=== PATIENT | female | born 1960 | race Caucasian/White ===

== ENCOUNTER 2024-06-18 15:50 | Inpatient (IN) | payer MEDICARE, SELFPAY ==
[2024-06-18] VITALS (10 sets, daily range): BP systolic 99–136; BP diastolic 40–97; BMI 24.9
--- NOTE | 2024-06-18 13:49 | ED TECH ---
A STEMI ALERT was called#[id number]# per @13.47pm.
--- NOTE | 2024-06-18 14:01 | ED.GENMED ---
History of Present Illness
General
Chief Complaint: Abdominal Pain
Source: patient
Exam Limitations: none
Time Seen by Provider: 06/18/24 14:01
History of Present Illness
History of Present Illness:
See MDM
Past History
Past History
ED Past Medical History: Hypothyroidism
ED Past Surgical History: Other (Breast lupectomy)
Social History
Tobacco: Non-smoker
Alcohol: None
Phy Exam
Physical Exam
Physical Exam:
See MDM
Course
Orders/Labs/Results
Orders:
Orders
06/18/24 13:41
Electrocardiogram (*1) Urgent
Reason for Study: Abdominal Pain
EKG- Treatment ONCE
06/18/24 13:55
Complete Blood Count/With Diff Urgent
Comprehensive Metabolic Panel Urgent
PTT Urgent
Prothrombin Time Urgent
Troponin I Urgent
Vital Signs
Initial and Last Documented VS:
Initial Vital Signs
Temp Pulse Resp BP
98.3 F 109 20 136/97
06/18/24 13:55 06/18/24 13:55 06/18/24 13:55 06/18/24 13:55
Last Documented Vital Signs
Temp Pulse Resp BP
98.3 F 109 20 136/97
06/18/24 13:55 06/18/24 13:55 06/18/24 13:55 06/18/24 13:55
MDM/Problems Addressed
Differential Diagnosis Includes:
HPI and MDM Narrative:
64-year-old female presenting to the emergency department with chest discomfort and neck pain. This occurred a few hours prior to arrival while she was eating breakfast. EKG done immediately on arrival and it read STEMI. Patient rushed back to
the emergency department immediately and STEMI alert was called. Patient immediately given aspirin load, Brilinta load, heparin bolus and sublingual nitro x 2. With sublingual nitro, patient states she is feeling better. She is extremely anxious
but expected.
She denies prior cardiac history or prior smoking history. She states she was having palpitations over the past few months and recently had negative cardiac evaluation a few months ago
Once the EKG was read by myself, immediately scented to the tape stringer on-call who immediately called his cath team in
Physical exam
General: Sitting in bed comfortably but anxious
HEENT: protecting airway
Neck: appears supple
CV: No evidence of cyanosis. Tachycardic
Resp: No accessory muscle use
Abd: Non-distended
Extremities: No deformities
Neuro: alert
Psych: Anxious
Skin: Intact
Problems Addressed including Acute and Chronic Conditions affecting care:
1. STEMI
Acuity: acute
Prognosis: unstable
Details: EKG done in triage showed STEMI. STEMI alert immediately called. Patient loaded with aspirin, Brilinta and heparin. Nitroglycerin is helping with the pain. The electrical technician instructor made aware immediately and will take her upstairs to
Employee Relation Manager
Updates
Differential Diagnosis (but not limited to): NSTEMI, STEMI
Testing considered: D-dimer
Drug therapy (if applicable): OTC meds, please see d/c instruction regarding Rx drugs
Amount and/or Complexity of Data Reviewed
Clinical info obtained from: Patient
External data reviewed: N/A
Labs I independently reviewed (but not limited to): N/A
Radiology: N/A
Pulse Ox: not hypoxic
EKG independently reviewed: Sinus rhythm, ST elevation anteriorly, reciprocal changes inferiorly, STEMI
Document Management Consultant: Sinus tachycardia
Critical Care: The high probability of a clinically significant, sudden or life threatening deterioration of the cardiovascular system(s) required my full and direct attention, intervention and personal management. The aggregate critical care time
was 31 minutes. This time is in addition to time spent performing reported procedures but includes the following:
[x] Data Review and interpretation
[x] Patient assessment and monitoring of vital signs
[x] Documentation
[x] Medication orders and management
Risk of Complication:
Social Determinants of health: Good social support
Discussed with other providers: Commission Associate
Escalation of Care includes Admit/Obs: Given her concern for acute STEMI, patient sent directly to Employee Relation Manager
Occasional wrong word or 'sound a like' substitutions may have occurred due to the inherent limitations of voice recognition software. Read the chart carefully and recognize, using context, where substitutions have occurred.
*Critical Care Note
Total Time (30-74mins, 75-104mins- exclusive of procedures): 31 min
ED Attending Note
-
Portions of this chart may have been created with voice recognition software.� Occasional wrong word or��sound alike� substitutions may have occurred due to the inherent limitations of voice recognition software.
Discharge Plan
Departure
Patient Disposition: Admit
Date of Disposition: 06/18/24
Time of Disposition: 14:01
Admit to: microbiology laboratory manager
Presentation/result/management discussed w/ accepting MD/DO: Commission Associate
Discharge Problem:
ST elevation (STEMI) myocardial infarction
Discharge Date and Time
Print Language: INDONESIAN
--- NOTE | 2024-06-18 14:18 | CON.CAR ---
Consultation
Consultation Request
Date/Time Consultation Requested: 06/18/2023 2 PM
Date/Time Consultation Performed: 06/18/2023 2 PM
Requesting Provider: Musa High
Performing Provider: Shane Puente
Reason for Consultation: anterior STEMI
Medical History
-
Chief Complaint: chest pain
History of Present Illness:
64-year-old female with medical history of breast cancer (2013), hypothyroidism, hyperlipidemia, presenting to the emergency department with chest pain. She an episode of chest pain radiating to arms/back/neck two weeks ago and again several days
ago that prompted her to discuss with her primary care doctor. She was instructed to present to the ED if this occurred again. She had recurrent more severe symptoms this morning while eating breakfast. Came to ED. EKG done immediately on
arrival showing anterior STEMI. Stable vital signs. Patient immediately given aspirin load, Brilinta load, heparin bolus and sublingual nitro x 2. With sublingual nitro, symptoms improved. general labor emergently activated. Coronary angiography
demonstrated 100% thrombotic occluded proximal/ostial LAD. PCI performed with mechanical thrombectomy followed by DESx2 with excellent result. Patient admitted to IVU in stable condition.
Denies smoking history. She was seen by cardiology (Dr. Jonas, [facility]) 04/2024 at which time she was having rare episodes of brief atypical chest pain and palpitations. Stress testing was offered but the patient elected to hold off. She reports
she had a distant stress test (~15 years ago) that was normal, and also a more recent Holter and Echo that were unremarkable.
Past Medical History
Past Medical History: Cancer, Hypercholesterolemia and Hypothyroidism
Social History
Tobacco: Non-Smoker
Allergies / Home Medications
Allergy/AdvReac Type Severity Reaction Status Date / Time
Penicillins Allergy Unknown Unknown Verified 06/18/24 13:55
Review of Systems
-
Cardiac: Chest Pain
Physical Exam
Vital Signs
Temp Pulse Resp BP
36.8 C 109 20 136/97
06/18/24 13:55 06/18/24 13:55 06/18/24 13:55 06/18/24 13:55
Physical Exam
General: Well Developed
HEENT: Normocephalic
Respiratory: Clear
Cardiac: S1/S2 and Regular Rhythm
Skin: Warm
Neuro: AO x 3
Impression / Plan
-
This is a 64 year old woman who has been having worsening anginal episodes at rest over the past several weeks to months, prompting her to present this morning and found to have an anterior STEMI with emergent coronary angiography demonstrating 100%
thrombotic occlusion of the proximal LAD. She is status post PCI with mechanical thrombectomy and ROBERT x 2 with excellent result. She had a elevated LVEDP ~25 mmHg in the chemical laboratory chief, but no clinical signs of heart failure, and remained hemodynamically
stable throughout the procedure.
Recommendations:
DAPT with aspirin and ticagrelor for at least 1 year
High intensity statin for goal LDL less than 55
Titrate beta-iglesia for goal heart rate 60
Start low-dose valsartan tomorrow if SBP greater than 100
Diuresis if signs of clinical volume overload (EDP was 25 in the Fraternity Adviser)
Echo tomorrow, further GDMT pending echo
Trend troponin to peak
Check lipids, Lp(a), A1c
Cardiac rehab
Data Reviewed
-
EKG: Tracing Personally Visualized and interpreted, Report Reviewed by me and Discussed with Physician
Labs: Labs Reviewed by me, Discussed with Physician and Discussed with Nurse
Old Records: Reviewed
[2024-06-18 14:52] LABS: ACT-LR - POC 271 Seconds (116-155)
[2024-06-18 15:15] LABS: ACT-LR - POC 377 Seconds (116-155)
[2024-06-18 15:22] LABS: % Basophils 0.6 % (0-2); % Eosinophils 0.8 % (0-6); % Immature Granulocytes 0.3 % (0-0.5); % Lymphocytes 8.1 % (20.5-51.1); % Monocytes 7.4 % (1.7-9.3); % Neutrophils 82.8 % (42.2-75.2); Absolute Basophils 0.1 10^3/uL (0-0.2); Absolute Eosinophils 0.1 10^3/uL (0-0.7); Absolute Monocytes 0.9 10^3/uL (0.1-0.6); Absolute Neutrophils 9.8 10^3/uL (1.4-6.5); Hematocrit 45.6 % (37.0-47.0); Hemoglobin 15.4 g/dL (12.0-16.0); Mean Corp Hgb Conc. 33.8 g/dL (33.0-37.0); Mean Corpuscular Hgb 30.4 pg (27.0-31.0); Mean Corpuscular Volume 89.9 fL (81.0-99.0); Mean Platelet Volume 10.1 fL (7.4-10.4); Nucleated Red Blood Cells % 0 %; Platelet Count 446 10^3/uL (130-400); Red Blood Cell Count 5.07 10^6/uL (4.20-5.40); Red Cell Dist. Width 13.8 % (11.5-14.5); White Blood Cell Count 11.9 10^3/uL (4.8-10.8)
[2024-06-18 15:27] LABS: ACT-LR - POC 310 Seconds (116-155)
[2024-06-18 15:32] LABS: APTT 29.6 Sec (23.4-35.0); INR 0.98; PT 13.3 Sec (11.4-14.6)
[2024-06-18 15:46] LABS: ALT (SGPT) 28 U/L (0-35); AST (SGOT) 111 U/L (14-36); Albumin 3.2 g/dl (3.5-5.0); Alkaline Phosphatase 106 U/L (38-126); Blood Urea Nitrogen 16 mg/dl (7-17); Calcium 8.3 mg/dl (8.4-10.2); Carbon Dioxide 21 mmol/L (22-30); Chloride 102 mmol/L (98-107); Estimated Creatinine Clearance 84 ml/min; Glucose 103 mg/dl (70-99); Potassium 3.4 mmol/L (3.5-5.1); Sodium 133 mmol/L (135-145); Total Bilirubin 0.7 mg/dl (0.2-1.3); Total Protein 5.8 g/dl (6.3-8.2); eGFR > 60.00
[2024-06-18 15:56] LABS: Troponin I 0.831 ng/ml
--- NOTE | 2024-06-18 16:26 | ITS.CL.PN ---
Paddle Dyeing Machine Operator - Procedure Note
Procedure
Procedure Note:
CARDIAC CATHETERIZATION REPORT
Date of Procedure: 06/18/2024
Referring: Dr. Musa High DO
Indication: anterior STEMI
PROCEDURE(S)
1. left heart catheterization
2. coronary angiography
3. mechanical thrombectomy
4. PCI with ROBERT for acute ND
5. IVUS
ACCESS: 6F right radial artery (closure: radial band)
CATHETERS
1. 6F JR4
2. 6F JL3.5
3. 6F EBU 3.5 guide catheter
MODERATE SEDATION: 90 minutes of moderate sedation was utilized. An independent medical cost consultant was present to assist with and help manage the patient's level of consciousness and physiologic status.
ULTRASOUND GUIDED VASCULAR ACCESS (right radial artery): Ultrasound was utilized for vascular access. The vessel was visualized under ultrasound and noted to be patent. An image of the vessel was stored permanently in the patient's medical record.
Under direct ultrasound guidance, vascular access was obtained using a modified Seldinger technique and a 6 Icelandic sheath was placed.
HEMODYNAMIC DATA
LV 109/18 (EDP 25) mmHg
AO 98/66 (mean 79) mmHg
CORONARY ANGIOGRAPHY
Dominance: Right
LM: Large, normal
LAD: large vessel giving rise to two moderate caliber diagonal branches. There is a 100% thrombotic occlusion proximally with TIMI0 flow and no collateralization. There is a area of bridging in the distal vessel.
LCx: large vessel giving rise to a small OM1, large branching OM2, small OM3, and large branching LPL. There is no coronary artery disease.
RCA: large vessel giving rise to a moderate caliber RPDA and small RPL branch. There is no coronary artery disease.
PCI to ostial/proximal LAD for acute ND with Penumbra mechanical thrombectomy, DESx2, and IVUS-guidance
Additional heparin was administered to achieve ACT greater than 300. The left main was engaged with an EBU 3.5 guide catheter and a Runthrough coronary wire placed in the distal LAD. Initial lesion preparation was performed with a 2.0 x 12
semicompliant balloon serial inflated with some faith of distal flow but significant thrombus visualized in the proximal LAD. The decision was made to perform mechanical thrombectomy with the [facility] CAT Rx system. After priming, the Cat Rx
catheter was advanced over the wire until within the left main, aspiration was switched on, and the catheter was advanced slowly to the mid LAD and then slowly back all the way to the guide with continuous aspiration. The catheter was removed from
the body after which aspiration was turned off and the guide was copiously aspirated. Subsequent angiography demonstrated significantly improved thrombus burden and dramatically improved distal flow. Stenting was performed with a 3.5 x 22 mm Helio
frontier drug-eluting stent inflated to 12 brendon. Subsequent angiography demonstrated significant stenosis proximal to the proximal stent edge in the ostial LAD versus possible stent edge mediated spasm. 200 mcg of IC nitroglycerin was given without
improvement in the appearance of the ostial LAD. IVUS was performed and demonstrated the stent to be undersized with a 4.0-4.25 millimeter distal and proximal vessel reference diameter. It also demonstrated significant soft plaque in the uncovered
ostial LAD. Decision was made to place a second overlapping 3.5 x 8 mm [place] ROBERT to cover the ostial LAD, which was deployed at 16 brendon after confirming precise ostial location and stent overlap in several views. Post dilation was then
performed with a 4.0 x 15 mm noncompliant balloon taken to 16 brendon at the distal stent edge and 18 brendon in the remainder of the overlapping stents. Final IVUS demonstrated excellent stent sizing, expansion, and apposition and no stent edge
dissections. Final angiographic result was outstanding with TIMI3 flow in the jailed D1. There was noted to be an area of cutoff in the very apical LAD, likely due to embolized thrombus. As this is a ~1 mm vessel subtending a very small area of
myocardium, decision was made to manage this medically. The wire and guide were removed and a TR band placed. The patient was taken to the IVU in stable condition and family updated.
RADIATION: dose 1082 mGy; DAP 77.8 Gy*cm2; fluoroscopy time 12.6 min
CONCLUSIONS
1. Single-vessel coronary artery disease as described with 100% thrombotic occlusion of the proximal LAD in setting of anterior STEMI.
2. Elevated left ventricular filling pressure and no aortic stenosis on hemodynamic pullback.
3. Successful PCI of the ostial/proximal LAD with mechanical thrombectomy followed by stenting with overlapping 3.5 x 22 mm and 3.5 x 8 mm Helio frontier drug-eluting stents postdilated to high-pressure with a 4.0 mm NC balloon. IVUS guided and
optimized with outstanding result and no complications.
RECOMMENDATIONS
1. expectant management after cardiac catheterization via right radial approach
2. DAPT with aspirin and ticagrelor for at least 1 year
3. aggressive secondary prevention of coronary artery disease with high intensity statin for goal LDL less than 55
Copy to: Dr. Qasim Jonas MD (crystallizer operator); NICKIE Guidry (PCP)
Signed: Shane Puente MD, PhD
[2024-06-18] MEDS: CRESTOR 20 MG PO (18:14)
[2024-06-18] MEDS: LOVENOX 40 MG SC (18:14)
[2024-06-18] MEDS: BRILINTA 90 MG PO (19:53)
[2024-06-18] MEDS: LOPRESSOR 12.5 MG PO (19:53)
--- NOTE | 2024-06-18 21:39 | PTCARENOTE ---
Received patient at change of shift. Patient sitting in bed, A&Ox3, family bedside. Right radial site clean, dry and intact with R-band still in place. No swelling, ecchymosis, or hematoma present at this time. BP 111/64, NSR 80s, 97% on room air.
Patient verbalizes being very anxious. RN spent time discussing plan of care and answering some questions the patient had. Patient agrees to call RN with any chest pain. Call maldonado within reach.
[2024-06-18] MEDS: AROMASIN 25 MG PO (22:25)
[2024-06-18] MEDS: SEROQUEL 12.5 MG PO (22:26)
[2024-06-19] VITALS (8 sets, daily range): BP systolic 87–120; BP diastolic 56–73; BMI 24.7
--- NOTE | 2024-06-19 01:05 | PTCARENOTE ---
Addendum entered by Maddy Kebede RN 06/19/24 01:07:
Order placed
Original Note:
While ambulating in [place], pt verbalized wanting to speak with Assistant Manager Trainee tomorrow if possible.
[2024-06-19 05:05] LABS: Hematocrit 39.3 % (37.0-47.0); Hemoglobin 13.6 g/dL (12.0-16.0); Mean Corp Hgb Conc. 34.6 g/dL (33.0-37.0); Mean Corpuscular Hgb 31.3 pg (27.0-31.0); Mean Corpuscular Volume 90.3 fL (81.0-99.0); Mean Platelet Volume 10.5 fL (7.4-10.4); Platelet Count 383 10^3/uL (130-400); Red Blood Cell Count 4.35 10^6/uL (4.20-5.40); Red Cell Dist. Width 13.6 % (11.5-14.5); White Blood Cell Count 12.1 10^3/uL (4.8-10.8)
[2024-06-19 05:32] LABS: Blood Urea Nitrogen 20 mg/dl (7-17); Carbon Dioxide 23 mmol/L (22-30); Chloride 104 mmol/L (98-107); Estimated Creatinine Clearance 84 ml/min; Glucose 93 mg/dl (70-99); HDL Cholesterol 50 mg/dl; LDL Cholesterol, Calculated 163 mg/dl; Sodium 137 mmol/L (135-145); Total Cholesterol 233 mg/dl (50-199); Triglyceride 104 mg/dl (10-149); Very Low Density Lipoprotein 20 mg/dl (0-30); eGFR > 60.00
--- NOTE | 2024-06-19 07:43 | W.PN.UPDATE ---
Update Note
Progress Note Update
Called to bedside for abnormal ECG.
The patient presented yesterday with anterior STEMI and underwent primary PCI to the ostial/proximal LAD with spiritism of MAYA III flow in the proximal/mid vessel with MAYA I-II flow in the distal/apical LAD and resolution of her symptoms.
This morning, the patient's EKG showed signs concerning for inferior STEMI, but the patient reported no symptoms since her PCI.
STAT echocardiogram was performed and the cath films were reviewed.
The echo shows a large anteroapical hypo/akinesis with dyskinesis of the anteroseptal/apical segments, consistent with a wrap-around LAD infarct.
An LV thrombus is plainly visible.
The inferior WILEY are likely aneurysm formation and not a new infarct.
D/C ticagrelor.
Restart heparin gtt.
Clopidogrel 600 mg this afternoon.
Apixaban 5 mg tomorrow.
GDMT.
No role for repeat catheterization at this time.
[2024-06-19] MEDS: HEPARIN 4000 UNITS IV (07:52)
[2024-06-19] MEDS: HEPARIN 25000 UNITS/250 ML IV (07:56)
[2024-06-19] MEDS: BRILINTA PO (08:02)
[2024-06-19] MEDS: SYNTHROID 75 MCG PO (08:34)
--- NOTE | 2024-06-19 09:23 | CM ---
Reviewed chart. Met with and Mrs. Hayward to review discharge plans. She states prior to admission she resides with her spouse and son in a two story home with two steps to enter, She states she has a full flight of steps to get to
bedroom/full bathroom. She states she has a powder room on the first floor. She states prior to admission she was independent with ambulation and adls. She states she wilkins not have any DME in the home. She states she has a prescription plan and
uses [facility]. Medical work-up in progress. The discharge plan is to return home with her spouse and son when medically stable.
[2024-06-19 09:33] LABS: Glycohemoglobin (HgbA1c) 5.2 % (4.0-5.6)
[2024-06-19] MEDS: DIOVAN 40 MG PO (10:50)
[2024-06-19] MEDS: LOPRESSOR 12.5 MG PO (10:52)
[2024-06-19] MEDS: SEROQUEL 25 MG PO (10:52)
--- NOTE | 2024-06-19 13:49 | W.PN.CD ---
Today's Communication / Plan
-
D/C aspirin and ticagrelor.
Load clopidogrel.
Restart heparin gtt.
Start apixaban 5 mg BID.
D/C heparin gtt 2 hours after apixaban dose.
Start dapagliflozin 10 mg daily.
Start metoprolol succinate 25 mg daily.
Impression / Plan
-
Impression/Plan: 64 y/o female with hypothyroidism and severe anxiety admitted with anterior STEMI.
#CAD/STEMI
-Acute.
-S/P aspiration thrombectomy (CatRX) and IVUS guided PCI of the ostial/proximal LAD (overlapping [employer] [place] 3.5 x 22 ROBERT, 3.5 x 8 ROBERT) restoring MAYA III flow to the proximal/mid LAD. The distal LAD wraps around the apex and has MAYA
I-II flow.
-EKG shows new inferior WILEY without symptoms. 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
-D/C aspirin.
-Heparin gtt restarted.
-D/C ticagrelor.
-Load with clopidogrel 600 mg this afternoon.
-Start apixaban 5 mg BID, first dose tonight. D/C heparin gtt 2 hours after apixaban dose.
#LV thrombus
-Unknown duration, but relatively acute.
-This will require therapeutic anticoagulation and chcf surveillance.
-Heparin gtt with transition to DOAC.
#Ischemic cardiomyopathy
-New diagnosis.
-LVEF = 35% with LAD WMA.
-GDMT as hemodynamics will tolerate.
-Start with dapagliflozin 10 mg daily and metoprolol 25 mg daily, followed by sacubitril-valsartan BID.
#Anxiety
-Chronic, exacerbated by her current circumstance.
-Continue home quetiapine.
-Low threshold for benzodiazepine use and psychiatry consult.
#Hypothyroidism
-Chronic.
-Continue levothyroxine.
#PPx
-Heparin gtt for DVT/VTE.
-No role for PPI.
#Dispo
-IVU status.
Subjective/Interval History:
STEMI yesterday.
EKG overnight showed new inferior WILEY.
Patient reports complete resolution of symptoms after PCI, no recurrence.
STAT bedside echo ordered, showing LAD infarct, apical aneurysmal changes and apical LV thrombus.
Results discussed with patient. Therapeutic anticoagulation started.
DATA:
Transthoracic Echocardiogram, 06/19/2024:
CONCLUSIONS
Large severe LAD regional wall motion abnormality involving most of the septum
and apex and a portion of the anterior wall.
LVEF 35% by visual assessment.
Apical echo bright density most c/w with thrombus (2x1.1 cm)
No significant valvular disease.
At most trace pericardial effusion
No prior study available for comparison.
Cardiac Catheterization/PCI, 06/18/2024:
CONCLUSIONS
1. Single-vessel coronary artery disease as described with 100% thrombotic occlusion of the proximal LAD in setting of anterior STEMI.
2. Elevated left ventricular filling pressure and no aortic stenosis on hemodynamic pullback.
3. Successful PCI of the ostial/proximal LAD with mechanical thrombectomy followed by stenting with overlapping 3.5 x 22 mm and 3.5 x 8 mm [place] frontier drug-eluting stents postdilated to high-pressure with a 4.0 mm NC balloon. IVUS guided and
optimized with outstanding result and no complications.
Physical Exam
Vital Signs/Labs
Vital Signs
Temp Pulse Resp BP Pulse Ox
36.8 C 71 18 96/63 95
06/19/24 11:26 06/19/24 12:00 06/19/24 11:26 06/19/24 11:26 06/19/24 11:26
06/18/24 06/19/24 06/20/24
11:59 11:59 11:59
Actual Weight 67.3 kg
06/19/24 07:42
06/19/24 03:54
PT 13.3 Sec (11.4-14.6) 06/18/24 14:00
INR 0.98 06/18/24 14:00
APTT Cancelled 06/19/24 07:42
Triglycerides 104 mg/dl (10-149) 06/19/24 03:54
LDL Cholesterol, Calc 163 mg/dl 06/19/24 03:54
VLDL Cholesterol, Calc 20 mg/dl (0-30) 06/19/24 03:54
HDL Cholesterol 50 mg/dl 06/19/24 03:54
LAB Results
06/18/24 06/18/24 06/18/24
14:00 20:02 21:45
Troponin I 0.831 H* 141.000 H* D Cancelled
06/19/24
03:54
Troponin I 91.700 H* D
Physical Exam
Constitutional: No acute distress and Comfortable
EENT: Anicteric and Moist mucous membranes
Cardiovascular: Rhythm & rate is regular, Pedal edema is absent, JVD pressure is normal, S1S2 is normal and Murmur/rub/gallop absent
Respiratory: Respiratory effort normal, Lungs clear to auscul., Wheeze Absent, Crackles Absent and Rhonchi Absent
GI: Soft, Distention absent, Flat, Non tender and Normal bowel sounds
Neuro/Psych: AO x 3
Data Reviewed
-
Date of Service: June 19, 2024
Medical Decision Making: Reviewed Test Results, Tests Ordered, Independent Historian Assessment, Test Interpretation and Review of Case with other Provider
EKG: Tracing Personally Visualized and interpreted and Report Reviewed by me
Echo: Tracing Personally Visualized and interpreted and Report Reviewed by me
X-Ray/CT/US/MRI/NUC/PET: Image Personally Visualized and interpreted and Report Reviewed by me
Medical Tests (PFT, Pathology etc): Image Personally Visualized and interpreted, Report Reviewed by me, Discussed with Physician, Discussed with Patient and Discussed with Family
Labs: Labs Reviewed by me
Old Records: Reviewed
--- NOTE | 2024-06-19 14:00 | CHAP ---
Father Salvador Osorio of [facility] in [place] anointed Amalia. Time uncertain.
[2024-06-19 14:50] LABS: APTT 101.7 Sec (23.4-35.0)
[2024-06-19] MEDS: PLAVIX 600 MG PO (18:08)
[2024-06-19] MEDS: CRESTOR 20 MG PO (18:08)
--- NOTE | 2024-06-19 19:47 | PTCARENOTE ---
Discussed pt's EKG findings after the puff ironer/ interventionalist discussion. Heparn bolus and drip initiated. Meds as ordered. Discussed plan of care. Will monitor.
[2024-06-19 20:24] LABS: APTT 113.5 Sec (23.4-35.0)
[2024-06-19] MEDS: LOPRESSOR PO (20:25)
[2024-06-19] MEDS: ELIQUIS 5 MG PO (21:02)
--- NOTE | 2024-06-19 22:04 | PTCARENOTE ---
Patient received at change of shift resting in the bed. Patient denies chest pain presently. Initial BP 87/56, discussed with CBC microsoft dynamics ax consultant physician, 2000 dose of metoprolol held. Patient denied feeling lightheaded or dizzy at the time. Heparin gtt
infusing per order. Sinus rhythm on residential monitor. Right radial cath site gauze with tegaderm C/D/I. Bilateral radial pulses palpable. Plan of care discussed with patient and spouse. Call maldonado within reach. Bed in lowest position, wheels locked.
Care ongoing.
[2024-06-19] MEDS: SEROQUEL 12.5 MG PO (22:37)
[2024-06-19] MEDS: AROMASIN 25 MG PO (22:37)
[2024-06-20] VITALS (8 sets, daily range): BP systolic 78–108; BP diastolic 50–67; BMI 24.8
--- NOTE | 2024-06-20 00:29 | PTCARENOTE ---
Around 2229 the patient reported sharp back pain. Denied radiation to neck. Denied chest pain or palpitations. An EKG was done due to the patient having back pain when she initially presented for a STEMI although the patient did state this back pain
was different. The EKG demonstrated NSR. CT surgery YULIA was notified and assessed the EKG. No further orders or changes in the plan of care were made. With repositioning the patient reported improvement in the pain. Discussed with the patient to
please call nursing staff if she experiences worsening pain including chest pain. Call maldonado within reach. Care ongoing.
[2024-06-20] MEDS: SYNTHROID 75 MCG PO (05:57)
--- NOTE | 2024-06-20 08:13 | W.PN.CD ---
Today's Communication / Plan
-
Change metoprolol to succinate 12.5 mg daily.
Start dapagliflozin 10 mg daily this morning.
Transitioned to clopidogrel/apixaban.
Discharge planning - possibly tomorrow.
Impression / Plan
-
Impression/Plan: 64 y/o female with hypothyroidism and severe anxiety admitted with anterior STEMI.
#CAD/STEMI
-Acute.
-S/P aspiration thrombectomy (CatRX) and IVUS guided PCI of the ostial/proximal LAD (overlapping Medtronic Helio Mcmullen 3.5 x 22 ROBERT, 3.5 x 8 ROBERT) restoring MAYA III flow to the proximal/mid LAD. The distal LAD wraps around the apex and has MAYA
I-II flow. I suspect she had stuttering infarcts - one several days ago and one on presentation.
-EKG shows new inferior WILEY without symptoms. 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
-Continue clopidogrel/apixaban.
-Restart metoprolol this morning.
#LV thrombus
-Unknown duration, but relatively acute.
-This will require therapeutic anticoagulation and nursing home surveillance.
-Apixaban 5 mg BID.
#Ischemic cardiomyopathy
-New diagnosis.
-LVEF = 35% with LAD WMA.
-GDMT as hemodynamics will tolerate.
-Reduce metoprolol succinate to 12.5 mg daily.
-Dapagliflozin 10 mg daily.
#Anxiety
-Chronic, exacerbated by her current circumstance.
-Continue home quetiapine.
-Low threshold for benzodiazepine use and psychiatry consult.
#Hypothyroidism
-Chronic.
-Continue levothyroxine.
#PPx
-Apixaban/SCD's for DVT/VTE.
-No role for PPI.
#Dispo
-IVU status.
-Discharge planning - possibly tomorrow.
Subjective/Interval History:
Very anxious.
Mild hypotension overnight.
Metoprolol held.
DATA:
Transthoracic Echocardiogram, 06/19/2024:
CONCLUSIONS
Large severe LAD regional wall motion abnormality involving most of the septum
and apex and a portion of the anterior wall.
LVEF 35% by visual assessment.
Apical echo bright density most c/w with thrombus (2x1.1 cm)
No significant valvular disease.
At most trace pericardial effusion
No prior study available for comparison.
Cardiac Catheterization/PCI, 06/18/2024:
CONCLUSIONS
1. Single-vessel coronary artery disease as described with 100% thrombotic occlusion of the proximal LAD in setting of anterior STEMI.
2. Elevated left ventricular filling pressure and no aortic stenosis on hemodynamic pullback.
3. Successful PCI of the ostial/proximal LAD with mechanical thrombectomy followed by stenting with overlapping 3.5 x 22 mm and 3.5 x 8 mm Helio frontier drug-eluting stents postdilated to high-pressure with a 4.0 mm NC balloon. IVUS guided and
optimized with outstanding result and no complications.
Physical Exam
Vital Signs/Labs
Vital Signs
Temp Pulse Resp BP Pulse Ox
36.5 C 77 14 101/67 99
06/20/24 03:10 06/20/24 03:10 06/20/24 03:10 06/20/24 03:10 06/20/24 03:10
06/18/24 06/19/24 06/20/24
11:59 11:59 11:59
Actual Weight 67.3 kg 67.6 kg
06/19/24 07:42
06/19/24 03:54
PT 13.3 Sec (11.4-14.6) 06/18/24 14:00
INR 0.98 06/18/24 14:00
APTT Cancelled 06/20/24 03:00
Triglycerides 104 mg/dl (10-149) 06/19/24 03:54
LDL Cholesterol, Calc 163 mg/dl 06/19/24 03:54
VLDL Cholesterol, Calc 20 mg/dl (0-30) 06/19/24 03:54
HDL Cholesterol 50 mg/dl 06/19/24 03:54
LAB Results
06/18/24 06/18/24 06/18/24
14:00 20:02 21:45
Troponin I 0.831 H* 141.000 H* D Cancelled
06/19/24
03:54
Troponin I 91.700 H* D
Physical Exam
Constitutional: No acute distress and Comfortable
EENT: Anicteric and Moist mucous membranes
Cardiovascular: Rhythm & rate is regular, Pedal edema is absent, JVD pressure is normal, S1S2 is normal and Murmur/rub/gallop absent
Respiratory: Respiratory effort normal, Lungs clear to auscul., Wheeze Absent, Crackles Absent and Rhonchi Absent
GI: Soft, Distention absent, Flat, Non tender and Normal bowel sounds
Neuro/Psych: AO x 3
Other: Cath Site (Right radial access site is C/D/I.)
Data Reviewed
-
Date of Service: June 20, 2024
Medical Decision Making: Reviewed Test Results, Independent Historian Assessment and Test Interpretation
EKG: Tracing Personally Visualized and interpreted and Report Reviewed by me
Echo: Tracing Personally Visualized and interpreted and Report Reviewed by me
X-Ray/CT/US/MRI/NUC/PET: Image Personally Visualized and interpreted and Report Reviewed by me
Medical Tests (PFT, Pathology etc): Image Personally Visualized and interpreted and Report Reviewed by me
Labs: Labs Reviewed by me
Old Records: Reviewed
[2024-06-20] MEDS: TOPROL XL 12.5 MG PO (09:22)
[2024-06-20] MEDS: PLAVIX 75 MG PO (09:23)
[2024-06-20] MEDS: DIOVAN 40 MG PO (09:23)
[2024-06-20] MEDS: SEROQUEL 25 MG PO (09:23)
[2024-06-20] MEDS: ELIQUIS 5 MG PO ×2 (09:23→20:13)
[2024-06-20] MEDS: LOPRESSOR PO (09:42)
--- NOTE | 2024-06-20 10:38 | PTCARENOTE ---
received patient this am, monitor shows NSR, VSS. patient is very anxious, weepy, asks a lot of questions, sat with patient answered questions and offered emotional support. right radial dsg. D/I, distal pulses palpable. encouraged patient to
ambulate in hallway today.
--- NOTE | 2024-06-20 12:12 | CM ---
Reviewed chart.Telephone call to her prescription plan to check on co-pay for Eliquis 5 mg po bid. and Farxiga 10 mg po daily. She has $452.00 left on her deductible to that to be met, so her first script for Eliquis would be $560.45 after she mets
her deductible her co-pay for Eliquis would be $140.00 a month. Her Farxiga 10 mg po daily would be $138.60 after her deductible has been met. Once she met her $2000.00 co-pay her medications would have a zero co-pay. Reviewed co-pay with and
Mrs. Hayward. They are agreeable to the co-pay. Placed the one month free coupons in her red discharge folder. Prior to admission Mrs. Hayward resides with her spouse and son in a two story home with two steps to enter. She has to go up a full flight
of steps to get to bedroom/full bathroom. She has a powder room on the first floor. Prior to admission she was independent with ambulation and adls. She does not have any DME in the home. She has a prescription plan and uses [facility]. Medical
work-up in progress. The discharge plan is to return home with her spouse and son when medically stable.
[2024-06-20] MEDS: CRESTOR 20 MG PO (18:04)
[2024-06-20] MEDS: AROMASIN 25 MG PO (22:38)
[2024-06-20] MEDS: SEROQUEL 12.5 MG PO (22:38)
--- NOTE | 2024-06-21 01:30 | PTCARENOTE ---
Received patient at change of shift. Patient awake, alert, and oriented x3. bedside. Right radial clean, dry, and intact. No ecchymosis, swelling. Soft to touch. BP 100/54, NSR 80s, 98% on room air. Discussed plan of care for evening.
Patient verbalized understanding. Pt has lots of questions about her newly diagnosed EF and heart failure. RN printed off pamphlet from [employer] about EF and went through the heart failure packet with her. Encouraged patient to ask abrasive worker her
more specific questions such as fluid restrictions, activity limitations, etc. Call maldonado left within reach.
[2024-06-21 05:03] VITALS: BP 108/70
[2024-06-21] MEDS: SYNTHROID 75 MCG PO (05:18)
[2024-06-21 05:37] LABS: % Basophils 0.4 % (0-2); % Eosinophils 2.3 % (0-6); % Immature Granulocytes 0.5 % (0-0.5); % Lymphocytes 13.9 % (20.5-51.1); % Monocytes 10.1 % (1.7-9.3); % Neutrophils 72.8 % (42.2-75.2); Absolute Eosinophils 0.2 10^3/uL (0-0.7); Absolute Immature Granulocytes 0.1 10^3/uL (0-0.05); Absolute Lymphocytes 1.4 10^3/uL (1.2-3.4); Absolute Neutrophils 7.2 10^3/uL (1.4-6.5); Hematocrit 40.6 % (37.0-47.0); Hemoglobin 13.6 g/dL (12.0-16.0); Mean Corp Hgb Conc. 33.5 g/dL (33.0-37.0); Mean Corpuscular Hgb 30.7 pg (27.0-31.0); Mean Corpuscular Volume 91.6 fL (81.0-99.0); Mean Platelet Volume 10.5 fL (7.4-10.4); Nucleated Red Blood Cells % 0 %; Platelet Count 348 10^3/uL (130-400); Red Blood Cell Count 4.43 10^6/uL (4.20-5.40); Red Cell Dist. Width 13.7 % (11.5-14.5); White Blood Cell Count 9.9 10^3/uL (4.8-10.8)
[2024-06-21 06:06] LABS: ALT (SGPT) 43 U/L (0-35); AST (SGOT) 99 U/L (14-36); Albumin 3.7 g/dl (3.5-5.0); Alkaline Phosphatase 86 U/L (38-126); Blood Urea Nitrogen 25 mg/dl (7-17); Calcium 9.1 mg/dl (8.4-10.2); Carbon Dioxide 23 mmol/L (22-30); Chloride 106 mmol/L (98-107); Estimated Creatinine Clearance 84 ml/min; Glucose 87 mg/dl (70-99); Magnesium 2.2 mg/dl (1.6-2.3); Potassium 4.5 mmol/L (3.5-5.1); Sodium 138 mmol/L (135-145); Total Bilirubin 0.8 mg/dl (0.2-1.3); Total Protein 5.9 g/dl (6.3-8.2); eGFR > 60.00
[2024-06-21 08:19] VITALS: BP 100/65
[2024-06-21] MEDS: SEROQUEL 25 MG PO (09:10)
[2024-06-21] MEDS: TOPROL XL 12.5 MG PO (09:10)
[2024-06-21] MEDS: FARXIGA 10 MG PO (09:11)
[2024-06-21] MEDS: ELIQUIS 5 MG PO (09:11)
[2024-06-21] MEDS: PLAVIX 75 MG PO (09:11)
[2024-06-21] MEDS: DIOVAN 40 MG PO (09:11)
[2024-06-21 09:58] VITALS: BMI 24.7
[2024-06-21 12:10] VITALS: BP 100/63
--- NOTE | 2024-06-21 13:36 | CM ---
Reviewed chart. Met with and Mrs. Hayward to review discharge plans. Prior to admission she resides withher spouse and son in a two story home with her spouse and son in two story home with two steps to enter. She has a full flight of steps to get
to bedroom/full bathroom. She has a powder room on the first floor. Prior to admission she was independent with ambulation and adls. She does not have any DME in the home She has a prescription plan and uses [facility]. Medical work-up in
progress. The discharge plan is to return home with her spouse and son when medically stable.
--- NOTE | 2024-06-21 15:25 | W.PN.CD ---
Today's Communication / Plan
-
Repeat echocardiogram in 3 months.
Stable on all current medications.
Stable for outpatient follow up.
Discharge.
Impression / Plan
-
Impression/Plan: 64 y/o female with hypothyroidism and severe anxiety admitted with anterior STEMI.
#CAD/STEMI
-Acute.
-Troponin peaked at 141.
-S/P aspiration thrombectomy (CatRX) and IVUS guided PCI of the ostial/proximal LAD (overlapping Medtronic Helio Emanuel 3.5 x 22 ROBERT, 3.5 x 8 ROBERT) restoring MAYA III flow to the proximal/mid LAD. The distal LAD wraps around the apex and has MAYA
I-II flow. I suspect she had stuttering infarcts - one several days ago and one on presentation.
-EKG shows new inferior WILEY without symptoms. 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
-Continue clopidogrel/apixaban and metoprolol.
#LV thrombus
-Unknown duration, but relatively acute.
-This will require therapeutic anticoagulation and terminal superintendent surveillance.
-Apixaban 5 mg BID.
#Ischemic cardiomyopathy
-New diagnosis.
-LVEF = 35% with LAD WMA.
-No evidence of heart failure.
-GDMT as hemodynamics will tolerate.
-Continue metoprolol succinate 12.5 mg daily, valsartan and dapagliflozin.
#HLD
-Chronic, stable.
-Total cholesterol = 233, LDL = 163, HDL = 50, Triglycerides = 104.
-High dose, high potency statin. Goal LDL < 55.
#Anxiety
-Chronic, exacerbated by her current circumstance.
-Continue home quetiapine.
-Low threshold for benzodiazepine use and psychiatry consult.
#Hypothyroidism
-Chronic.
-Continue levothyroxine.
#PPx
-Apixaban/SCD's for DVT/VTE.
-No role for PPI.
#Dispo
-IVU status.
-Discharge.
Subjective/Interval History:
Feeling well but remains anxious.
DATA:
Transthoracic Echocardiogram, 06/19/2024:
CONCLUSIONS
Large severe LAD regional wall motion abnormality involving most of the septum
and apex and a portion of the anterior wall.
LVEF 35% by visual assessment.
Apical echo bright density most c/w with thrombus (2x1.1 cm)
No significant valvular disease.
At most trace pericardial effusion
No prior study available for comparison.
Cardiac Catheterization/PCI, 06/18/2024:
CONCLUSIONS
1. Single-vessel coronary artery disease as described with 100% thrombotic occlusion of the proximal LAD in setting of anterior STEMI.
2. Elevated left ventricular filling pressure and no aortic stenosis on hemodynamic pullback.
3. Successful PCI of the ostial/proximal LAD with mechanical thrombectomy followed by stenting with overlapping 3.5 x 22 mm and 3.5 x 8 mm [place] frontier drug-eluting stents postdilated to high-pressure with a 4.0 mm NC balloon. IVUS guided and
optimized with outstanding result and no complications.
Physical Exam
Vital Signs/Labs
Vital Signs
Temp Pulse Resp BP Pulse Ox
36.5 C 79 18 100/63 99
06/21/24 12:08 06/21/24 14:00 06/21/24 12:08 06/21/24 12:10 06/21/24 12:10
06/20/24 06/21/24 06/22/24
11:59 11:59 11:59
Actual Weight 67.6 kg 67.3 kg
06/21/24 05:17
06/21/24 05:17
PT 13.3 Sec (11.4-14.6) 06/18/24 14:00
INR 0.98 06/18/24 14:00
APTT Cancelled 06/20/24 03:00
Magnesium 2.2 mg/dl (1.6-2.3) 06/21/24 05:17
Triglycerides 104 mg/dl (10-149) 06/19/24 03:54
LDL Cholesterol, Calc 163 mg/dl 06/19/24 03:54
VLDL Cholesterol, Calc 20 mg/dl (0-30) 06/19/24 03:54
HDL Cholesterol 50 mg/dl 06/19/24 03:54
LAB Results
06/18/24 06/18/24 06/18/24
14:00 20:02 21:45
Troponin I 0.831 H* 141.000 H* D Cancelled
06/19/24
03:54
Troponin I 91.700 H* D
Physical Exam
Constitutional: No acute distress and Comfortable
EENT: Anicteric and Moist mucous membranes
Cardiovascular: Rhythm & rate is regular, Pedal edema is absent, JVD pressure is normal, S1S2 is normal and Murmur/rub/gallop absent
Respiratory: Respiratory effort normal, Lungs clear to auscul., Wheeze Absent, Crackles Absent and Rhonchi Absent
GI: Soft, Distention absent, Flat, Non tender and Normal bowel sounds
Neuro/Psych: AO x 3
Data Reviewed
-
Date of Service: June 21, 2024
Medical Decision Making: Reviewed Test Results, Independent Historian Assessment and Test Interpretation
EKG: Tracing Personally Visualized and interpreted and Report Reviewed by me
Echo: Tracing Personally Visualized and interpreted and Report Reviewed by me
X-Ray/CT/US/MRI/NUC/PET: Report Reviewed by me
Medical Tests (PFT, Pathology etc): Image Personally Visualized and interpreted and Report Reviewed by me
Labs: Labs Reviewed by me
Old Records: Reviewed
--- NOTE | 2024-06-21 15:52 | W.PN.HFE ---
Impression / Plan
- -
I met with Amalia at her bedside with her . Both were engaged in the conversation. Amalia began with multiple questions related to ejection fraction, mortality and survival. We discussed what HF is, how her NV contributed to her decrease
in her EF due to lack of blood flow to the muscle supplied by the LAD. We discussed that EF is not always static. She felt that her EF would be 35% for the remainder of her life. I shared information about recovery from NV, cardiac rehab and
information on HFimpEF. We discussed that it is unknown at this time how here EF will respond. We discussed a few other articles/studies she had and her questions were answered to the best of my abilities. I guided her to the AHA/ACC/HFSA 2021
Guidelines on HF that our program follows to direct care. We discussed risks vs. benefits of treatments, reviewed medications and HF lifestyle/symptom management. She eats a well balanced diet and does not drink fluids in excess. We discussed how to
monitor for HF symptoms, daily weights and when to reach out to a provider. She shared the supplements she takes and I encouraged her to give the list to her pharmacist to review for interactions as she is on multiple new medications. We discussed
the importance of stress/anxiety management and the support of her mental health counselor. I reiterated the importance of cardiac rehab and follow up.
She was emotional at times sharing that she did not expect this to happen since she leads a healthy lifestyle. She has had other health events such has laryngal spasms and breast cancer but states this is the worst one of them all. Emotional support
offered throughout the consult.
Subjective/Objective Data
- Social History
Tobacco: Non-smoker
Alcohol: None
Drug: None
Personal:
Living: with family
Employment: Retired
- Objective Data
Vital Signs
Temp Pulse Resp BP Pulse Ox
97.7 F 79 18 100/63 99
06/21/24 12:08 06/21/24 14:00 06/21/24 12:08 06/21/24 12:10 06/21/24 12:10
Laboratory Results
06/21/24 05:17
06/21/24 05:17
Last Echo Date:
Results:
Medications:
- NYHA Class Score
Class I: No limitation of physical activity. Ordinary physical activity does not cause undue fatigue, palpitation, or dyspnea (shortness of breath).
Class II: Slight limitation of physical activity. Comfortable at rest, but ordinary physical activity results in fatigue, palpitation, or dyspnea.
Class III: Marked limitation of physical activity. Comfortable at rest, but less than ordinary activity causes fatigue, palpitation or dyspnea.
Class IV: Unable to carry out any physical activity without discomfort. Symptoms of cardiac insufficiency at rest. If any physical activity is undertaken, discomfort is increased.
- LACE Score
LACE score is defined as:
- Length of Stay
- Acuity of Admission
- Comorbidities
- ED visits in last 6 months
(LACE score >/= to 10 is High Risk for readmission within 30 days)
Transition of Care Planning
- -
Does the patient have a scale at home: No
Can the patient obtain a scale: No
Options for Obtaining a scale: Request from [facility]
Heart Failure Education
- -
Readiness to Learn:: Receptive
Method:: Print, Teach back, Verbal
Time spent: 90
Person Taught: Patient, Significant Other
Home Management: Activity, Daily weight, Fluid restriction, Medications (Antiplatelet and Statin), Provider follow-up, Risk factors, Treatment/procedures, What is heart failure, When to call physician, Worsening signs/symptoms, 2 gm NA diet
Patient specific risk factors: Stress, Heart disease (CAD/NV)
Heart Failure medications: ARBs (Angiotensin Receptor Blockers), Beta Blockers, SGLT-2 (Sodium Glucose Transport Protein 2) inhibitors, Anticoagulants
Response to teaching: Verbalizes understanding, Needs reinforcement
Topic that needs reinforcement/Comment: Pt has an emotional barrier to learning at this time and reinforcing HF information will be helpful.
[2024-06-21 16:21] VITALS: BP 86/67
--- NOTE | 2024-06-21 16:25 | W.DS.TRANS ---
DC Summary - [employer]
-
Discharge Instructions:
Discharge Diagnosis/Procedures STEMI, s/p thrombectomy with angioplasty and
stent x2 to Left Anterior Descending artery
LV thrombus
Diet Low Cholesterol
Activity No strenuous activity
Additional Activity For 2 weeks
Driving Restrictions No driving for 24 hours
Other Services Cardiac Rehab
Instructions:
Stand-Alone Forms: DC Instructions- Cath/EP Lab
Changes to Home Medications: Yes
Discharge Medications:
DC Medications w/original date entered in [facility]
exemestane 25 mg tablet (Aromasin) 25 mg PO HS 06/18/24
levothyroxine 75 mcg tablet (Synthroid) 75 mcg PO DAILY 06/18/24
quetiapine 25 mg tablet (Seroquel) 12.5 mg PO DAILY 06/18/24
apixaban 5 mg tablet (Eliquis) 5 mg PO BID #60 tabs 06/20/24
clopidogrel 75 mg tablet 75 mg PO DAILY #90 tabs 06/20/24
dapagliflozin propanediol 10 mg tablet 10 mg PO DAILY #90 tabs 06/20/24
metoprolol succinate 25 mg tablet,extended release 24 hr 12.5 mg (1/2 x 25 mg) PO DAILY #90 tabs 06/20/24
rosuvastatin 20 mg tablet 20 mg PO QPM #90 tabs 06/20/24
valsartan 40 mg tablet 40 mg PO DAILY #90 tabs 06/20/24
quetiapine 25 mg tablet 25 mg PO HS 06/21/24
Home Medication Changes
NEW: apixaban, clopidogrel, dapagliflozin, metoprolol succinate, rosuvastatin, valsartan
Pending Results: No
--- NOTE | 2024-06-21 17:02 | PTCARENOTE ---
D/C instructions given to patient and . patient has very high anxiety and asking many questions for reassurance. Reviewed discharge instructions numerous times so patient felt comfortable and she is educated on all of her medications. INT x 2
D/C'd, telemetry D/C'd, personal belongings packed and sent home with patient. D/C to home via wc accompanied by staff.
[2024-06-21 17:35] LABS: Lipoprotein a (Lp a) 8 mg/dL (<=29)
--- NOTE | 2024-06-22 10:46 | W.HF.CON ---
Heart Failure
- LV Function
Left ventricular function study result: LV Ejection fraction </= 35%
Ejection Fraction Percentage: 35
- ARNI
Patient already on ARNI: No
Heart Failure ARNI Contraindication: Hypotension
- ACEI/ARB
Patient already on ACEI/ARB: Yes
- Beta Brian
Patient already on Evidence Based Beta Brian: Yes
- Mineralocorticord Receptor Antagonist
Patient already on MRA: No
Heart Failure MRA Contraindication: Hypotension
- SGLT-2 Inhibitor
Patient already on SGLT-2 Inhibitor: Yes
- NYHA CHF Classification
NYHA CHF Classification Level: Class III - Symptoms w/ min exertion, interferes w/ nml daily activity
- ACC/AHA Stage
ACC/AHA Stage: Stage C: Symptomatic Heart Failure
== END 2024-06-21 17:29 | disposition home or self-care (01) | DRG 321 ==
LOC: IVU 15:50
PROVIDERS: ADMITTING PHYSICIAN Student in an Organized Health Care Education/Training Program; EMERGENCY PHYSICIAN Student in an Organized Health Care Education/Training Program
PROC: B240ZZ3 Ultrasonography of Single Coronary Artery, Intravascular (ICD-10-PCS; 2024-06-18)
PROC: 027035Z Dilation of Coronary Artery, One Artery with Two Drug-eluting Intraluminal Devices, Percutaneous Approach (ICD-10-PCS; 2024-06-18)
PROC: 02C03ZZ Extirpation of Matter from Coronary Artery, One Artery, Percutaneous Approach (ICD-10-PCS; 2024-06-18)
PROC: B211YZZ Fluoroscopy of Multiple Coronary Arteries using Other Contrast (ICD-10-PCS; 2024-06-18)
PROC: 4A023N7 Measurement of Cardiac Sampling and Pressure, Left Heart, Percutaneous Approach (ICD-10-PCS; 2024-06-18)
DX: I21.09 ST elevation (STEMI) myocardial infarction involving other coronary artery of anterior wall (principal); I50.21 Acute systolic (congestive) heart failure; I25.10 Atherosclerotic heart disease of native coronary artery without angina pectoris; I25.5 Ischemic cardiomyopathy; I51.3 Intracardiac thrombosis, not elsewhere classified; F41.9 Anxiety disorder, unspecified; E78.00 Pure hypercholesterolemia, unspecified; E03.9 Hypothyroidism, unspecified; Z85.3 Personal history of malignant neoplasm of breast; Z88.0 Allergy status to penicillin
CPT/HCPCS: 76937; 80048; 80053; 80061; 83036; 83695; 83735; 84484; 85025; 85027; 85610; 85730; 92978; 93005; 93306; 93458; 99291; C1725; C1753; C1757; C1874; C1894; C9606; Q9967

== ENCOUNTER 2024-07-03 18:08 | Outpatient (RCR) | payer MEDICARE, OTHER, SELFPAY ==
[2024-07-03 15:08] LABS: Glucose - Point of Care 72 mg/dl (70-99)
[2024-07-03 15:31] LABS: Glucose - Point of Care 80 mg/dl (70-99)
== END 2024-07-03 23:59 | disposition home or self-care (01) ==
LOC: CRHB 18:08
PROVIDERS: ATTENDING PHYSICIAN Internal Medicine Cardiovascular Disease
DX: I21.01 ST elevation (STEMI) myocardial infarction involving left main coronary artery (principal); Z95.5 Presence of coronary angioplasty implant and graft; I25.10 Atherosclerotic heart disease of native coronary artery without angina pectoris
CPT/HCPCS: 82962; G0422; G0423

== ENCOUNTER 2024-08-07 12:04 | Outpatient (RCR) | payer MEDICARE, OTHER, SELFPAY ==
[2024-07-12 11:24] LABS: Glucose - Point of Care 115 mg/dl (70-99)
[2024-07-12 12:37] LABS: Glucose - Point of Care 96 mg/dl (70-99)
[2024-07-14 11:01] LABS: Glucose - Point of Care 92 mg/dl (70-99)
[2024-07-14 11:58] LABS: Glucose - Point of Care 100 mg/dl (70-99)
== END 2024-08-07 23:59 | disposition home or self-care (01) ==
LOC: CRHB 12:04
PROVIDERS: ATTENDING PHYSICIAN Internal Medicine Cardiovascular Disease
DX: I21.01 ST elevation (STEMI) myocardial infarction involving left main coronary artery (principal); I25.2 Old myocardial infarction (principal); I25.10 Atherosclerotic heart disease of native coronary artery without angina pectoris; Z95.5 Presence of coronary angioplasty implant and graft
CPT/HCPCS: 82962; G0422; G0423

== ENCOUNTER 2024-09-06 11:33 | Outpatient (RCR) | payer MEDICARE, OTHER, SELFPAY | END 2024-09-06 23:59 | disposition home or self-care (01) | LOC: CRHB 11:33 | PROVIDERS: ATTENDING PHYSICIAN Internal Medicine Cardiovascular Disease | DX: I21.01 ST elevation (STEMI) myocardial infarction involving left main coronary artery (principal); Z95.5 Presence of coronary angioplasty implant and graft; I25.2 Old myocardial infarction; I25.10 Atherosclerotic heart disease of native coronary artery without angina pectoris | CPT/HCPCS: G0422; G0423 ==

== ENCOUNTER 2024-09-22 11:35 | Outpatient (RCR) | payer MEDICARE, OTHER, SELFPAY | END 2024-09-22 23:59 | disposition home or self-care (01) | LOC: CRHB 11:35 | PROVIDERS: ATTENDING PHYSICIAN Internal Medicine Cardiovascular Disease | DX: I21.01 ST elevation (STEMI) myocardial infarction involving left main coronary artery (principal); Z95.5 Presence of coronary angioplasty implant and graft; I25.10 Atherosclerotic heart disease of native coronary artery without angina pectoris; I25.2 Old myocardial infarction | CPT/HCPCS: 93306; 93798; G0422; G0423; Q9950 ==

== ENCOUNTER → 2024-12-11 13:01 | Outpatient (REF) | payer MEDICARE, OTHER, SELFPAY | LOC: RCS 13:01 | PROVIDERS: ATTENDING PHYSICIAN Internal Medicine Cardiovascular Disease; FAMILY PHYSICIAN Physician Assistant Medical | DX: I51.3 Intracardiac thrombosis, not elsewhere classified (principal) | CPT/HCPCS: 93308; 93321; 93325; Q9950 ==